=== PATIENT | female | born 2000 | race African-American/Black ===

== ENCOUNTER 2022-05-23 04:39 | Day surgery (SDC) | payer OTHER ==
[2022-05-20 11:31] VITALS: BMI 26.6
[2022-05-23] MEDS ORDERED: MIDAZOLAM HCL 2 MG/2 ML SINGLE DOSE VIAL ONE (11:05)
[2022-05-23] MEDS ORDERED: oxyCODONE HCL 5 MG TABLET PO PRN (11:34)
[2022-05-23] MEDS ORDERED: ONDANSETRON 4 MG/2 ML VIAL IVPUSH PRN (11:34)
[2022-05-23] MEDS ORDERED: LACTATED RINGERS SOLUTION 1,000 ML IV SCH (11:45)
[2022-05-23] MEDS ORDERED: ceFAZolin SODIUM 1 GM VIAL IVPB ONE (12:30)
[2022-05-23] MEDS ORDERED: BUPIVACAINE HCL/PF 0.5% (5MG/ML) 10 ML VIAL ONE (12:31)
[2022-05-23] MEDS ORDERED: METHYLENE BLUE 50 MG/10 ML AMPUL ONE (12:31)
[2022-05-23] MEDS ORDERED: BUPIVACAINE HCL/PF 0.5% (5 MG/ML) 30 ML VIAL IJ ONE ×2 (12:49)
[2022-05-23 18:52] VITALS: RESP 20; TEMP 97.5
[2022-05-23 18:54] VITALS: BP 120/75; PULSE 65
== END 2022-05-23 18:55 | disposition home or self-care (01) ==
LOC: JASU-SURG 04:39
PROVIDERS: ATTEND Surgery
PROC: 0JB90ZZ Excision of Buttock Subcutaneous Tissue and Fascia, Open Approach (ICD-10-PCS; principal; 2022-05-23 12:00)
DX: L05.92 Pilonidal sinus without abscess (principal)
CPT/HCPCS: 81025; 88304-TC; 94760; Q9968